=== PATIENT | female | born 1965 | race Caucasian/White ===

== ENCOUNTER 2018-03-03 08:02 | Day surgery (SDC) | payer OTHER ==
[~2018-03-03 08:02] MED LIST: ADVIL200 MG PO; FLONASE AL50 MCG/ACT IN; SUDAFED 12HR120 MG PO
[2018-03-03 10:35] VITALS: BP 100/55
== END 2018-03-03 10:55 | disposition home or self-care (01) | DRG 951 ==
LOC: ENDO 08:02
PROVIDERS: ATTEND Internal Medicine Gastroenterology
PROC: 0DBL8ZX Excision of Transverse Colon, Via Natural or Artificial Opening Endoscopic, Diagnostic (ICD-10-PCS; principal; 2018-03-03)
PROC: 0DBN8ZX Excision of Sigmoid Colon, Via Natural or Artificial Opening Endoscopic, Diagnostic (ICD-10-PCS; 2018-03-03)
DX: Z12.11 Encounter for screening for malignant neoplasm of colon (principal); Q43.8 Other specified congenital malformations of intestine; D12.3 Benign neoplasm of transverse colon; K63.5 Polyp of colon; K64.4 Residual hemorrhoidal skin tags; K64.8 Other hemorrhoids; Z87.11 Personal history of peptic ulcer disease